=== PATIENT | female | born 1965 | race Caucasian/White ===

== ENCOUNTER 2017-10-30 08:22 | Day surgery (SDC) | payer OTHER ==
[2017-10-30] MEDS ORDERED: FENTAnyl 50 MCG/ML VIAL (11:28)
[2017-10-30] MEDS ORDERED: MIDAZOLAM 1 MG/ML 2 ML INJ ×3 (11:28)
== END 2017-10-30 15:12 | disposition home or self-care (01) ==
LOC: GIL 08:22
DX: Z12.11 Encounter for screening for malignant neoplasm of colon (principal); K64.8 Other hemorrhoids
CPT/HCPCS: 45378